=== PATIENT | male | born 1960 | race Caucasian/White ===

== ENCOUNTER 2018-06-07 13:21 | Outpatient (CLI) | payer OTHER ==
--- NOTE | 2018-06-07 14:53 | MRI ---
MRI RIGHT SHOULDER: Date: 06-07-18 Provided Clinical History: Right shoulder pain. FINDINGS: There is full thickness, full width retracted tearing of the supraspinatus tendon with retraction to the level of the acromioclavicular joint. There is full thickness partial width tearing involving the anterior aspects of the infraspinatus tendon with retraction. There is prominent signal alteration a nd thickening involving the subscapularis tendon compatible with at least high grade partial thicknes s undersurface tearing involving the cranial fibers. There is medial dislocation of the long head bic eps tendon which is perched upon the lesser tuberosity. Teres minor tendon appears intact. There is m uscular volume loss involving supraspinatus, infraspinatus and subscapularis. Mild fatty atrophy invo lving infraspinatus. The glenoid labrum and glenohumeral articular cartilage are suboptimally evaluated in the absence of joint distention. Abnormal signal in the region of the superior labrum is suspicious for slap tear. T he intraarticular segment of the long head biceps tendon appears mildly attenuated. The amount of fluid within the glenohumeral joint appears physiologic. Acromioclavicular joint osteoa rthrosis is demonstrated. No focal concerning regional marrow muscular signal abnormality is evident. IMPRESSION: 1. Full thickness retracted tears of the supraspinatus and infraspinatus as above. 2. High grade partial thickness undersurface tearing of subscapularis tendon with associated medial d islocation of long head biceps tendon. 3. Acromioclavicular joint osteoarthrosis. 4. Findings suspicious for slap tear with possible extension to involve the intraarticular segment of the long head biceps tendon. POS: TPC
== END 2018-06-07 13:22 | disposition home or self-care (01) ==
LOC: BICMRI 13:21
PROVIDERS: ATTEND Family Medicine
DX: M24.811 Other specific joint derangements of right shoulder, not elsewhere classified (principal); M75.101 Unspecified rotator cuff tear or rupture of right shoulder, not specified as traumatic; M19.011 Primary osteoarthritis, right shoulder; S41.011A Laceration without foreign body of right shoulder, initial encounter

== ENCOUNTER 2020-02-03 14:53 | Observation (INO) | payer OTHER ==
--- NOTE | 2020-02-03 16:18 | PDOC.HHP ---
Hospitalist HPI - History of Present Illness Light headedness History of Present Illness: PCP: Dr. Mckeon The patient is a 70-year-old male with past medical history significant for HTN , HLD, DMII, and GERD that presents to the emergency department as a transfer from [facility] for near syncope. Apparently, the patient was out [place] and he began to feel lightheaded and diaphoretic. He states this is continued until he got to the house and cooled off. He says "I know I was dehydrated". The patient states that he had another episode of feeling light headed and diaphoretic today, while working on a piece of equipment, so he went to his office to sit down. Another person visited his office and as he got up to greet them, he became light headed and diaphoretic. Therefore, the patient's drove him to the ER in [place]. Upon arrival , he had another episode of feeling lightheaded again and had a systolic blood pressure in the 80s. After being in the emergency department, he reported having some sharp chest pain on the left side of his chest, which he described as a muscle cramping. The patient also had some cramping in his back. His initial cardiac workup was unremarkable. He was transferred to our facility for further testing and monitoring. ED Course: VITAL SIGNS MonFeb 03, 2020 15:03 MIKO Valdez Cheryl BP: 99/49 (Left Arm), MAP: 65, Pulse: 96, Resp: 18, Temp: 97.8 (Oral), Pain: 0, O2 sat: 97 on (Room Air), Time: 02/03/2020 15:03. VITAL SIGNS MonFeb 03, 2020 15:30 MIKO Valdez Cheryl BP: 104/64, MAP: 82, Pulse: 88, Resp: 17, O2 sat: 95 on (Room Air), Time: 2019 15:30. VITAL SIGNS MonFeb 03, 2020 16:00 MIKO Valdez Cheryl BP: 117/65, MAP: 82, Pulse: 90, Resp: 17, Pain: 0, O2 sat: 98 on (Room Air), Time: 02/03/2020 16:00. 2L IVF Hospitalist ROS - Medication Medications: aspirin oral MonFeb 03, 2020 15:17 MIKO Valdez Cheryl tablet : Strength - 81 mg : ORAL Patient Dose: 81 mg Oral once a day. lisinopril-hydrochlorothiazide MonFeb 03, 2020 15:18 MIKO Valdez Cheryl tablet : Strength - 20 mg-25 mg : ORAL Patient Dose: 20mg-25m mg Oral once a day (in the morning). metFORMIN MonFeb 03, 2020 15:19 MIKO Valdez Cheryl tablet : Strength - 1,000 mg : ORAL Patient Dose: 1000 mg Oral 2 times a day. fenofibrate MonFeb 03, 2020 15:20 MIKO Valdez Cheryl tablet : Strength - 160 mg : ORAL Patient Dose: 160 mg Oral once a day. Prevacid 24Hr MonFeb 03, 2020 15:22 MIKO Valdez Cheryl capsule,delayed release(DR/EC) : Strength - 15 mg : ORAL Patient Dose: 30 mg Oral once a day (in the morning). Januvia MonFeb 03, 2020 15:23 MIKO Valdez Cheryl tablet : Strength - 25 mg : ORAL Patient Dose: 25 mg Oral once a day. atorvastatin MonFeb 03, 2020 15:24 MIKO Valdez Cheryl tablet : Strength - 10 mg : ORAL Patient Dose: 10 mg Oral once a day. [place] 3-6-9 Complex MonFeb 03, 2020 15:25 MIKO Valdez Cheryl capsule : Strength - 400 mg-400 mg-400 mg : ORAL Patient Dose: 400 mg Oral 2 times a day. Allergies: Eucalyptus Hospitalist History - Past Medical History Other Medical History: MEDICAL HISTORY MonFeb 03, 2020 15:05 MIKO Valdez Cheryl Notes: PT HAS HAD RIGHT SHOULDER INJURY WITH STEROID INJ IN THE PAST, Past medical history includes history of diabetes, Type II, Past medical history includes gastrointestinal disease, gastroesophageal reflux disease, Past medical history includes history of hyperlipidemia, high cholesterol, currently being treated, Past medical history includes history of hypertension. MALE SURGICAL HISTORY MonFeb 03, 2020 15:05 MIKO Valdez Cheryl Surgical history of hernia repair, Notes umbilical, Surgical history of orthopedic surgery, right knee. PSYCHIATRIC HISTORY MonFeb 03, 2020 15:05 MIKO Valdez Cheryl Notes: denies. SOCIAL HISTORY MonFeb 03, 2020 15:05 MIKO Valdez Cheryl Patient drinks socially, every week, Patient denies drug use, Patient has no smoking history. FAMILY HISTORY Non contributory for cardiac or pulmonary disease. (poor historian) Hospitalist Results - EKG Interpretation EKG: EKG demonstrates normal sinus rhythm with rate 90, ID 168, cures duration 90, QTc of 437, cures axis -85 with flattened T waves in the inferior leads, axis is left, conduction normal, ST segments normal. Nonspecific EKG - Radiology Interpretation Chest x-ray Status: report reviewed by me Hospitalist H&P A/P - Problem (1) LOUIE (acute kidney injury) Code(s): N17.9 - ACUTE KIDNEY FAILURE, UNSPECIFIED Status: Acute Assessment and Plan: We will admit the patient to the telemetry unit, observation status. Expected length of stay less than 2 midnights. 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 Says that he knows he was dehydrated. Presents with a EKG normal sinus rhythm, chest x-ray negative for any acute process, troponin negative, BNP less than 10. His BUN is 50, creatinine 2.82. Given 2 L IV fluids, reports improvement in symptoms. We will continue IV fluid hydration, recheck BMP and CBC in a.m. we will check UA. Symptoms likely secondary to dehydration and not cardiac in nature. (2) Dehydration Code(s): E86.0 - DEHYDRATION Status: Acute Assessment and Plan: Likely cause for problem #1. BUN 50, creatinine 2.82. (3) Chest pain Code(s): R07.9 - CHEST PAIN, UNSPECIFIED Status: Acute Assessment and Plan: Patient reported 1 episode of chest pain, described as cramping at the [place] ER. Has cardiovascular risk factors including hypertension, diabetes type 2 and hyperlipidemia. Initial troponin negative, BNP less than 10 , EKG normal sinus rhythm, checks x-ray negative for any acute process. Upon examination, patient denies any chest pain. Will give aspirin full dose and trend troponins. We will continue black pickler. (4) HTN (hypertension) Code(s): I10 - ESSENTIAL (PRIMARY) HYPERTENSION Status: Chronic Assessment and Plan: Patient presented hypotensive at the [facility]. After 2 L IV fluids blood pressure stable. Will continue cardiac monitoring. Will hold home dose of lisinopril/HCTZ for now. Will add PRN antihypertensives as needed. (5) HLD (hyperlipidemia) Code(s): E78.5 - HYPERLIPIDEMIA, UNSPECIFIED Status: Chronic Assessment and Plan: Patient takes home dose of fenofibrate and atorvastatin. Will restart home medications when reconciled by nursing. (6) DMII (diabetes mellitus, type 2) Status: Chronic Assessment and Plan: Patient reports taking metformin thousand milligrams twice daily and Januvia 25 mg daily. Will hold home meds for now. Will start moderate sliding scale. Accu-Cheks AC at bedtime. (7) GERD (gastroesophageal reflux disease) Code(s): K21.9 - GASTRO-ESOPHAGEAL REFLUX DISEASE WITHOUT ESOPHAGITIS Status: Chronic Assessment and Plan: We will start Protonix daily. - Plan Plan: SCDs for DVT prophylaxis. Protonix for GI prophylaxis. Full code. Medical contact is SANDRA OATES ()- [phone] CALL WITH UPDATES. Discussed case with Dr. Polk.
[2020-02-03] MEDS ORDERED: Ondansetron ODT 4 MG TAB PO PRN (16:38)
[2020-02-03] MEDS ORDERED: Calcium Carbonate 500 MG ChewTAB PO PRN (16:38)
[2020-02-03] MEDS ORDERED: Acetaminophen 650 MG Suppository PR PRN (16:38)
[2020-02-03] MEDS ORDERED: Acetaminophen 325 MG TAB PO PRN (16:38)
[2020-02-03] MEDS ORDERED: Ondansetron PF 4 MG/2 ML Vial IVP PRN (16:38)
[2020-02-03] MEDS ORDERED: Senokot S 8.6-50 MG TAB PO PRN (16:38)
[2020-02-03] MEDS ORDERED: HumaLOG 300 UNITS/3 ML VIAL SC PRN ×2 (16:44)
[2020-02-03] MEDS ORDERED: Dextrose 50% Abboject 50 ML SYRINGE SLOW IVP PRN (16:44)
[2020-02-03] MEDS ORDERED: Dextrose 5% in Water 1,000 ML IV PRN (16:44)
[2020-02-03 16:49] LABS: Troponin I Less than 0.010 ng/mL (< 0.028)
[2020-02-03] MEDS ORDERED: Aspirin 81 mg Enteric Coated Tablet PO SCH (17:00)
[2020-02-03] MEDS ORDERED: Magnesium 2 GM/50 ML 2 GM in Premix Bag 1 BAG IVPB SCH (18:15)
[2020-02-03] MEDS: Sodium Chloride 0.9% 1,000 ML IV SCH (20:01)
[2020-02-04 03:08] LABS: Bacteria/HPF None Seen HPF (None Seen); Bilirubin Negative (Negative); Blood, Urine Negative (Negative); Clarity Clear (Clear); Glucose, Urine (Dipstick) 100 mg/dL (Negative); Ketone, Urine Negative (Negative); Leukocyte Negative Leu/uL (Negative); Nitrite Negative (Negative); Protein, Urine (Dipstick) Negative (Neg-Trace); RBC/HPF 0-3 HPF (0-3); Specific Gravity, Urine 1.019 (1.002-1.036); Squamous Epithelial 0-3 HPF (0-3); Urobilinogen Normal mg/dL (Less than 2); WBC/HPF 0-3 HPF (0-3)
[2020-02-04 05:04] LABS: #Basophils 0.1 thou/uL (0.0-0.2); #Eosinphils 0.1 thou/uL (0.0-0.7); #Lymphocytes 2.8 thou/uL (1.20-3.40); #Monocytes 0.7 thou/uL (0.11-0.59); #Neutrophils 2.7 thou/uL (1.40-6.50); %Basophils 0.9 % (0.0-1.0); %Eosinophils 1.7 % (0.0-10.0); %Lymphocytes 43.6 % (21.0-51.0); %Monocytes 11.5 % (0.0-10.0); %Neutrophils 42.4 % (42.0-75.0); Mean Corpuscular HGB CONC 33.5 g/dL (32.0-36.0); Mean Corpuscular Hemoglobin 30.7 pg (27.0-31.0); Mean Corpuscular Volume 91.7 fL (78.0-98.0); Mean Platelet Volume 8.2 fL (7.4-10.4); Platelet Count 281 thou/uL (130-400); RBC Distribution Width 11.6 % (11.5-14.5); Red Blood Cell (RBC) Count 4.22 mill/uL (4.70-6.10); White Blood Cell (WBC) Count 6.5 thou/uL (4.8-10.8)
[2020-02-04 05:26] LABS: Anion Gap 14 mmol/L (10-20); BUN (Urea Nitrogen) 42 mg/dL (8.4-25.7); Calc. Creatinine Clearance 67 mL/min (70-130); Calcium 8.7 mg/dL (7.8-10.44); Carbon Dioxide 24 mmol/L (22-29); Chloride 101 mmol/L (98-107); Estimated GFR-MDRD 43; Glucose 162 mg/dL (70-105); Magnesium 1.8 mg/dL (1.6-2.6); Potassium 3.7 mmol/L (3.5-5.1); Sodium 135 mmol/L (136-145)
[2020-02-04] MEDS: Sodium Chloride 0.9% 1,000 ML IV SCH (06:17)
[2020-02-04 06:19] VITALS: BMI 30.4
[2020-02-04 07:57] VITALS: TEMP 98
[2020-02-04] MEDS ORDERED: Fenofibrate Nanocrystallized 145 MG TAB PO SCH (09:00)
[2020-02-04] MEDS ORDERED: Aspirin Chewable 81 MG TAB PO SCH (09:00)
[2020-02-04] MEDS ORDERED: Multivit, Therapeutic 1 TAB PO SCH (09:00)
[2020-02-04 11:53] VITALS: BP 130/68
[2020-02-04 18:11] LABS: SARS-CoV-2 MS2 Positive; SARS-CoV-2 N Gene Negative; SARS-CoV-2 S Gene Negative; SARS-CoV-2 by NAA Not Detected (NotDetected); SARS-CoV-2 orf1ab Negative
--- NOTE | 2020-02-05 06:55 | DIS ---
DATE OF ADMISSION: 02/03/2020 DATE OF DISCHARGE: 02/04/2020 PRIMARY DISCHARGE DIAGNOSES: 1. Acute kidney injury. 2. Severe dehydration. SECONDARY DISCHARGE DIAGNOSES: 1. Diabetes mellitus, type 2. 2. Hypertension. 3. Gastroesophageal reflux disease. PROCEDURES DONE DURING HOSPITALIZATION: H and H 13 and 38 and platelet count 281. Discharge BUN and creatinine are 42 and 1.6. Serum bicarb of 24. On the day of discharge, CK levels 226. Admitting BUN and creatinine were 50 and 2.8 with serum bicarb of 18. Troponin x2 negative. BNP less than 10. Albumin 5.0. TSH 0.990. DISCHARGE MEDICATIONS: 1. Aspirin 81 mg p.o. daily. 2. Atorvastatin 20 mg p.o. daily. 3. Fenofibrate 145 mg p.o. daily. 4. Glipizide extended release 10 mg p.o. daily. 5. Prevacid 30 mg p.o. daily. 6. Multivitamin 1 tablet once daily. 7. Januvia 100 mg p.o. daily. 8. Lisinopril with hydrochlorothiazide 20/12.5 mg p.o. daily, the patient needs to restart this from . 9. Metformin 1000 mg twice daily, to restart from 02/07/2020. ALLERGIES: TO EUCALYPTUS. DISCHARGE PLAN: The patient to follow up with Dr. Mckeon, his primary care physician in 1 week. BRIEF COURSE DURING HOSPITALIZATION: The patient initially went to [place] [facility] with complaints of dizziness. 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 He was trying to hydrate, but he knew he had not taken enough fluids. On arrival, the patient had a creatinine of 2.8 with a BUN of 50. He was clinically very severely dehydrated. He received fluid boluses in the ER, nearly 2 L and was placed on 100 mL/hour. 24 hours into hospitalization, the patient is feeling a whole lot better. He is ambulating in the room. His creatinine has come down to 1.65. The patient's urine has come back to normal color. He was counseled with regard to hydrating himself adequately when he is out in the sun. He is otherwise hemodynamically stable and is wanting to go home. He also will stay home for 2 days prior to resuming work from . Please note, I have seen and examined the patient on the day of discharge. Job ID: [id number]
== END 2020-02-04 13:24 | disposition home or self-care (01) ==
LOC: ERS 14:53 → 2SW 15:39
PROVIDERS: ADMIT Internal Medicine; ATTEND Internal Medicine
DX: N17.9 Acute kidney failure, unspecified (principal); E86.0 Dehydration; E11.9 Type 2 diabetes mellitus without complications; I10 Essential (primary) hypertension; K21.9 Gastro-esophageal reflux disease without esophagitis; E78.5 Hyperlipidemia, unspecified; E78.00 Pure hypercholesterolemia, unspecified; Z79.82 Long term (current) use of aspirin; Z79.84 Long term (current) use of oral hypoglycemic drugs; Z79.899 Other long term (current) drug therapy; Z91.048 Other nonmedicinal substance allergy status; Z20.828 Contact with and (suspected) exposure to other viral communicable diseases
CPT/HCPCS: 36415; 36416; 80048; 81001; 82550; 83735; 84443; 85025; 87635; 96361; 96365; G0378; J3475; U0003

== ENCOUNTER 2022-03-08 13:10 | Observation (INO) | payer BC ==
[2022-03-08] MEDS ORDERED: Ondansetron ODT 4 MG TAB PO PRN (16:47)
[2022-03-08] MEDS ORDERED: Ondansetron PF 4 MG/2 ML Vial IVP PRN (16:47)
[2022-03-08] MEDS ORDERED: Acetaminophen 650 MG Suppository PR PRN (16:47)
[2022-03-08] MEDS ORDERED: Acetaminophen 325 MG TAB PO PRN (16:47)
[2022-03-08] MEDS ORDERED: hydrALAZINE 20 MG/ML VIAL SLOW IVP PRN (16:47)
[2022-03-08] MEDS ORDERED: Meclizine HCl 12.5 MG TAB PO PRN (16:49)
[2022-03-08] MEDS ORDERED: Dextrose 50% Abboject 50 ML SYRINGE SLOW IVP PRN (16:50)
[2022-03-08] MEDS ORDERED: Insulin Regular 300 UNITS/3 ML VIAL SC PRN (16:50)
[2022-03-08] MEDS ORDERED: Dextrose 5% in Water 1,000 ML IV PRN (16:50)
[2022-03-08 18:16] VITALS: BMI 29.5
[2022-03-08] MEDS ORDERED: Atorvastatin Calcium 40 MG TAB PO SCH (21:00)
[2022-03-09 04:55] LABS: #Basophils 0.1 thou/uL (0.0-0.2); #Eosinphils 0.2 thou/uL (0.0-0.7); #Lymphocytes 2.2 thou/uL (1.20-3.40); #Monocytes 0.7 thou/uL (0.11-0.59); #Neutrophils 3.6 thou/uL (1.40-6.50); %Basophils 0.8 % (0.0-1.0); %Eosinophils 3.5 % (0.0-10.0); %Lymphocytes 32.6 % (21.0-51.0); %Monocytes 10.1 % (0.0-10.0); %Neutrophils 53.1 % (42.0-75.0); Hemoglobin 13.7 g/dL (14.0-18.0); Mean Corpuscular HGB CONC 34.8 g/dL (32.0-36.0); Mean Corpuscular Hemoglobin 32.1 pg (27.0-31.0); Mean Corpuscular Volume 92.2 fL (78.0-98.0); Mean Platelet Volume 7.8 fL (7.4-10.4); Platelet Count 249 thou/uL (130-400); RBC Distribution Width 11.7 % (11.5-14.5); Red Blood Cell (RBC) Count 4.27 mill/uL (4.70-6.10); White Blood Cell (WBC) Count 6.7 thou/uL (4.8-10.8)
[2022-03-09 05:26] LABS: Anion Gap 14 mmol/L (10-20); BUN (Urea Nitrogen) 13 mg/dL (8.4-25.7); Calc. Creatinine Clearance 148 mL/min (70-130); Calcium 9.2 mg/dL (7.8-10.44); Carbon Dioxide 27 mmol/L (22-29); Cardiac Risk 5.9 (Less than 4.5); Chloride 99 mmol/L (98-107); Cholesterol 214 mg/dl (< 200 Desired); Estimated GFR 105; Glucose 248 mg/dL (70-105); HDL Cholesterol 36 mg/dL (>60 Neg Risk); Potassium 3.9 mmol/L (3.5-5.1); Sodium 136 mmol/L (136-145)
[2022-03-09 05:34] LABS: Triglycerides 1191 mg/dL (Less than 150)
[2022-03-09] MEDS: Insulin Regular 300 UNITS/3 ML VIAL SC PRN ×3 (06:03→17:05)
[2022-03-09] MEDS ORDERED: Amlodipine 10 MG TAB PO SCH (09:00)
[2022-03-09] MEDS ORDERED: Alogliptin 25 MG TAB PO SCH (09:00)
[2022-03-09] MEDS ORDERED: Aspirin 81 mg Enteric Coated Tablet PO SCH (09:00)
[2022-03-09 16:02] VITALS: BP 148/83; TEMP 97.5
== END 2022-03-09 18:18 | disposition home or self-care (01) ==
LOC: NEURO 13:10
PROVIDERS: ADMIT Internal Medicine; ATTEND Internal Medicine
DX: R42 Dizziness and giddiness (principal); R11.0 Nausea; I10 Essential (primary) hypertension; E78.5 Hyperlipidemia, unspecified; E11.9 Type 2 diabetes mellitus without complications; K21.9 Gastro-esophageal reflux disease without esophagitis; I77.1 Stricture of artery; G89.29 Other chronic pain; M25.511 Pain in right shoulder; I35.0 Nonrheumatic aortic (valve) stenosis; Z79.82 Long term (current) use of aspirin; Z79.84 Long term (current) use of oral hypoglycemic drugs; Z79.899 Other long term (current) drug therapy; Z88.8 Allergy status to other drugs, medicaments and biological substances; Z20.822 Contact with and (suspected) exposure to COVID-19
CPT/HCPCS: 36415; 36416; 70551; 80048; 80061; 85025; 90471; 90732; 93306; G0009; G0378; J1815; U0003; U0005

== ENCOUNTER 2023-11-15 15:32 | Emergency (ER) | payer BC ==
[2023-11-15] MEDS ORDERED: Ketorolac Tromethamine 30 MG (1 mL) VIAL ONE (15:58)
== END 2023-11-15 17:22 | disposition home or self-care (01) ==
LOC: ERS 15:32
DX: N45.1 Epididymitis (principal); E11.9 Type 2 diabetes mellitus without complications; K21.9 Gastro-esophageal reflux disease without esophagitis; E78.00 Pure hypercholesterolemia, unspecified; I10 Essential (primary) hypertension; Z79.82 Long term (current) use of aspirin; Z79.4 Long term (current) use of insulin; Z79.899 Other long term (current) drug therapy
CPT/HCPCS: 76870; 93976; J1885